=== PATIENT | male | born 1945 | race Caucasian/White ===

== ENCOUNTER 2017-01-05 15:00 | Inpatient (IN) | payer OTHER, MEDICARE ==
[~2017-01-05] VITALS: Ht 180.3 cm; Wt 106.3 kg
--- NOTE | ~2017-01-05 | DS ---
PATIENT'S NAME: VIJAY CHATTERJEE [facility] AGE: 72 Y [address] 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 SECONDARY DIAGNOSIS: 1. Hypertension. 2. Dyslipidemia. 3. History of left hip intertrochanteric fracture. 4. History of inferior myocardial infarction. 5. History of left side ischemic stroke. 6. History of left carotid artery stenosis. PROCEDURE PERFORMED: Left total hip arthroplasty with removal of the hardware of left femur. HISTORY: The patient is a 72-year-old, who presents with advanced left hip degenerative joint disease and associated severely compromised activities of daily living. The patient has decided to proceed with total left hip arthroplasty after having been thoroughly counseled regarding the risks, benefits, limitations and alternatives. Please refer to the outpatient clinic notes and admission history and physical for this patient. HOSPITAL COURSE: The patient underwent a total left hip arthroplasty on 02/01/2017 without complications. General endotracheal anesthesia plus subcutaneous and periarticular local anesthesia. was utilized. The patient received 24 hours of perioperative prophylactic antibiotics and remained hemodynamically stable, neurovascularly intact throughout the entire hospital course. The postoperative prophylactic deep venous thrombosis prophylaxis consisted of Xarelto, early mobilization and pneumatic compression devices. Daily physical therapy for gait training, transfer training, and reinforcement of hip dislocation precautions were received. The patient progressed well in physical therapy. On the date of discharge, 02/03/2017, the incision at the hip was healing well and showed no signs of infection. DISPOSITION: Home. DISCHARGE ACTIVITY: The patient is to bear weight as tolerated with strict hip dislocation precautions as instructed. There are to be no dressing changes. Dr. Becker is to be notified immediately if there is any increased PATIENT'S NAME: VIJAY CHATTERJEE [facility] AGE: 72 Y [address] ROOM: [place] [address] LOCATION: [facility] ADMIT DATE: 02/01/2017 Discharge Summary DISCHARGE DATE: 02/03/2017 FAMILY PHYSICIAN: River Damon MD ATTENDING PHYSICIAN: Paul Becker pain, fevers, chills, erythema or drainage. DISCHARGE MEDICATIONS: 1. Xarelto 10 mg 1 tablet p.o. daily for 12 days for postoperative DVT prophylaxis. 2. Gabapentin 300 mg 1 tablet p.o. every night for pain for 7 days. 3. Hydromorphone 2 mg 1 to 2 tablets p.o. every 4 hours p.r.n. for pain. 4. Diazepam 5 mg 1/2 to 1 tablet p.o. every 6 hours p.r.n. for muscle spasms. The patient is to either use the hydromorphone or his home [place] for pain, but not both at the same time. He is then instructed to continue all his other preadmission medications as instructed by his internal medicine doctor. FOLLOWUP: Followup appointment is to be with Dr. Becker's office on 02/08/2017 for his initial postoperative evaluation. PASCUAL SANDERS PA-C FOR MD KHANG ROGEL/jaun /[id number] d: 02/08/17 1211 t: 02/10/17 0810, DISCHARGE SUMMARY
--- NOTE | ~2017-01-05 | OR ---
PATIENT'S NAME: VIJAY CHATTERJEE [facility] AGE: 72 Y [address] ROOM: [place] [address] LOCATION: [facility] ADMIT DATE: 02/01/2017 OR/Procedure Report DISCHARGE DATE: FAMILY PHYSICIAN: JOSIAH CHASE MD ATTENDING PHYSICIAN: MANDO BRUSH SURGEON: Mando Brush MD CALENDER OPERATOR: Abdon Biswas PA-C and Nicolas Gupta CST/SUPER[employer]OR [employer]. DATE OF PROCEDURE: 02/01/2017 PRE-OP DIAGNOSES: Malunion left hip intertrochanteric fracture. Left hip femoral acetabular impingement syndrome. Moderate left hip degenerative joint disease. Severe preoperative leg-length discrepancy (2 cm). Retained hardware left proximal femur (trochanteric femoral nail with distal interlocking screw, proximal set screw, and lag screw). POST-OP DIAGNOSES: Malunion left hip intertrochanteric fracture. Left hip femoral acetabular impingement syndrome. Moderate left hip degenerative joint disease. Severe preoperative leg-length discrepancy (2 cm). Retained hardware left proximal femur (trochanteric femoral nail with distal interlocking screw, proximal set screw, and lag screw). OPERATION: Left total hip arthroplasty; removal of hardware, left proximal femur ([place] Gamma nail, distal interlocking screw, proximal anti-rotational set screw, and lag screw). ANESTHESIA: General endotracheal anesthesia plus subcutaneous and periarticular local anesthesia (ropivacaine with epinephrine and Toradol). ESTIMATED BLOOD LOSS: Approximately 300 mL. DRAIN: None. SPECIMEN: None. COMPLICATIONS: None. IMPLANTS: 1. Nikolas Trident Tritanium, size 58 mm, hemispherical, uncemented acetabular shell. 2. Nikolas X3 neutral acetabular polyethylene liner with 40 mm inner diameter. 3. [place] Alevism Modular 150 mm x 22 mm femoral stem with 25 mm proximal cone body (+0 mm). 4. Biolox femoral head (40 mm diameter with +4 mm taper adapter sleeve). PATIENT'S NAME: VIJAY CHATTERJEE [facility] AGE: 72 Y [address] ROOM: [place] [address] LOCATION: [facility] ADMIT DATE: 02/01/2017 OR/Procedure Report DISCHARGE DATE: FAMILY PHYSICIAN: JOSIAH CHASE MD ATTENDING PHYSICIAN: MANDO BRUSH INDICATION FOR SURGERY: Vijay Chatterjee is a 72-year-old male who presents with advanced left hip malunion intertrochanteric fracture, left hip femoral acetabular impingement syndrome, moderate left hip degenerative joint disease, severe preoperative leg-length discrepancy (2 cm), retained hardware left proximal femur (trochanteric femoral nail with distal interlocking screw, proximal set screw, and lag screw) and associated severely compromised activities of daily living. The patient has decided to proceed with hip replacement after having been thoroughly counseled regarding the associated risks, benefits, and limitations. We have specifically reviewed the risks and implications of infection, deep venous thrombosis, pulmonary embolism, mortality, neurovascular complications, blood transfusion (and associated potential for disease transmission or transfusion reaction), stiffness, instability, leg length discrepancy, mechanical deterioration of the components (due to wear and to loosening), and the potential need for revision. The patient's past orthopedic history is significant for having undergone open reduction and internal fixation of a left hip intertrochanteric fracture with Dr. Mari in [place] in September of 2015. He has experienced persistent and progressive left hip discomfort ever since then. He states his left leg has been significantly shorter than his right ever since then. He notes a markedly externally rotated foot progression angle (consistent with relative retroversion as a result of an externally rotated malunion of the intertrochanteric fracture). He received a very positive diagnostic response to an intra-articular left hip injection (but no associated durable therapeutic response). He emphasizes again (in the preoperative holding area) that he has been experiencing severe paroxysmal left anterolateral groin pain. These severe "jolts" of pain have been occurring approximately 8 times a day. These events seem to be provoked by activities that involve rotation of the hip. He understands that removal of hardware is indicated due to the fact that the presence of a hardware precludes placement of a hip replacement. He also understands that the cortical defects place him at increased risk for a postoperative periprosthetic fracture. The indication for a modular femoral component is that it will allow us to correct the relative retroversion of the proximal femur. DESCRIPTION OF PROCEDURE: The patient was positioned in a lateral decubitus position with the left side up after administration of anesthesia and prophylactic antibiotics. An axillary roll was placed and the non-operative leg was well padded. The pelvis was locked perpendicularly to the floor on a pegboard. The left hip and entire operative extremity were prepped and draped with vigilant sterile technique. PATIENT'S NAME: VIJAY CHATTERJEE [facility] AGE: 72 Y [address] ROOM: [id number] [place], [place] [address] LOCATION: [facility] ADMIT DATE: 02/01/2017 OR/Procedure Report DISCHARGE DATE: FAMILY PHYSICIAN: JOSIAH CHASE MD ATTENDING PHYSICIAN: MANDO BRUSH The patient's name as well as the intended operative side and procedure were confirmed with a verbal time-out involving myself, the circulating nurse, the scrub nurse, and the anesthesiologist. The left hip was approached through a standard posterolateral incision. The fascia jaylene and the gluteus macy fascia were sharply divided in line with the overlying skin incision. The sciatic nerve was identified and was vigilantly protected throughout the entire case. The short external rotators and posterior capsule were divided from their respective femoral insertions and tagged with four #1 Ethibond sutures for later repair. The hip was posteriorly dislocated with combined flexion, adduction, and internal rotation. The femoral neck osteotomy was performed with an oscillating saw. Inspection of the femoral head demonstrated 10 degrees of retroversion of the femoral neck relative to neutral version. This was undoubtedly a source of the patient's externally rotated foot progression angle and a contributing factor to femoral acetabular impingement. There was decreased femoral head-neck offset. There was a high-grade partial-thickness articular cartilage loss at the anterior aspect of the femoral head. The previous intertrochanteric fracture had healed. There was a vertical defect at the mid portion of the greater trochanter. There was moderate medialization of the greater trochanteric fragment with resultant moderate trochanteric conflict with the femoral canal. The head of the distal interlocking screw was approached through a 5 mm stab incision within the preexisting distal scar. This screw was removed intact. Fluoroscopy was necessary in order to localize the head of the countersunk gamma nail. The anti-rotational set screw was removed prior to removal of the lag screw. The nail was removed intact. Circumferential acetabular exposure was obtained. Inspection of the acetabulum demonstrated a moderate effusion. There were moderate grade 3 degenerative changes. There was inner perimeter degenerative tearing of the anterior superior glenoid labrum. There were no loose bodies. There was no dysplasia. Remnants of the acetabular labrum were sharply thoroughly excised. The acetabulum was sequentially progressively reamed up to 57 mm with hemispherical power reamers. The final acetabular shell was impacted into position in 20 degrees of anteversion and 45 degrees of inclination. An excellent press-fit was obtained. No supplemental dome screw fixation was necessary. A neutral trial liner was inserted. Attention was next focused upon femoral preparation. The femoral canal initiator was utilized. The femoral canal was reamed sequentially with tapered conical reamers. The size 22 mm reamer tightly engaged the proximal femoral diaphysis. The 155 mm distal stem bypassed the distal interlocking screw hole by more than 2 endosteal cortical diameters. This was confirmed PATIENT'S NAME: VIJAY CHATTERJEE [facility] AGE: 72 Y [address] ROOM: [address] [address] LOCATION: [facility] ADMIT DATE: 02/01/2017 OR/Procedure Report DISCHARGE DATE: FAMILY PHYSICIAN: JOSIAH CHASE MD ATTENDING PHYSICIAN: MANDO BRUSH fluoroscopically. Reaming for the proximal body was conducted sequentially up to a size 25. The increased offset between the 23 mm proximal body and 25 mm proximal body greatly enhanced the stability of the construct. It should be noted that the proximal body was inserted with 20 degrees of anteversion relative to neutral version. This resulted in 30 degrees greater anteversion compared to the malunited version of the femoral neck subsequent to the intertrochanteric fracture. The size 25 broach obtained excellent axial and rotational stability. Trial reductions with the above specified construct yielded acceptable stability and acceptable reproduction of leg length and offset. All trial components were removed. The final acetabular liner was inserted with excellent circumferential visualization of its locking mechanism to assure adequate deployment. The final femoral component was impacted into position. The femoral component achieved excellent axial and rotational stability. The trunnion of the femoral component was vigilantly protected prior to placement of the femoral head. The trunnion of the femoral component was thoroughly cleaned and dried prior to placement of the femoral head. The incision was thoroughly irrigated with bacteriostatic pulsatile saline lavage multiple times throughout the case. The entire joint space was thoroughly inspected and thoroughly irrigated to assure that there was no residual debris of any sort. A final reduction was then performed. After final reduction, the hip could be firmly externally rotated in full extension and zero degrees of abduction without anterior subluxation. In neutral rotation and zero degrees of abduction, the hip could be firmly flexed to 120 degrees without instability. At 90 degrees of flexion and zero degrees abduction, the hip could be internally rotated to 55 degrees before there was any hint of posterior subluxation. The posterior capsule and short external rotators were repaired through two drill holes in the posterior aspect of the greater trochanter. The fascia jaylene and gluteus macy fascia were closed with multiple simple and [id number] interrupted # 1 Ethibond and #1 Vicryl sutures. Subcutaneous tissues were thoroughly re-irrigated with bacteriostatic pulsatile saline lavage. Subcutaneous tissues were re-approximated with simple buried interrupted #0 Vicryl sutures. The skin was closed with superficial buried interrupted 2-0 Vicryl sutures followed by a running subcuticular 3-0 Monocryl suture, followed by Octylseal, followed by Steri- Strips with benzoin, followed by an occlusive Mepilex dressing. There were no intra-operative complications. PATIENT'S NAME: VIJAY CHATTERJEE [facility] AGE: 72 Y [address] ROOM: [place] [address] LOCATION: [facility] ADMIT DATE: 02/01/2017 OR/Procedure Report DISCHARGE DATE: FAMILY PHYSICIAN: JOSIAH CHASE MD ATTENDING PHYSICIAN: MANDO BRUSH It should be noted that the physician's power plant assistant played an active, integral role throughout this entire operation. By providing expert retraction, they greatly facilitated and expedited safe and effective exposure of the proximal femur and acetabulum for preparation and implantation of the components. They were also actively involved in the patient's positioning, prepping and draping, as well as wound closure. MD PAUL ROGEL/juan /[id number] d: 02/02/17 0238 t: 02/12/17 1202, OPERATIVE SUMMARY
[2017-01-05] MEDS ORDERED: ASPIRIN LO-DOSE81 MG PO (16:13)
[2017-01-05] MEDS ORDERED: PLAVIX75 MG PO (16:13)
[2017-01-05] MEDS ORDERED: LOPRESSOR25 MG PO (16:14)
[2017-01-05] MEDS ORDERED: ZANTAC (NON-FO150 MG PO (16:14)
[2017-01-05] MEDS ORDERED: LIORESAL10 MG PO (16:15)
[2017-01-05] MEDS ORDERED: LIPITOR80 MG PO (16:15)
[2017-01-05] MEDS ORDERED: COZAAR25 MG PO (16:15)
[2017-01-05] MEDS ORDERED: FLOMAX0.4 MG PO (16:16)
[2017-01-05] MEDS ORDERED: HYDROCODON-ACE1 EAC4 PO (16:16)
[2017-01-05] MEDS ORDERED: MOBIC15 MG PO (16:16)
[2017-01-05] MEDS ORDERED: NITROSTAT0.4 MG SL (16:16)
[2017-02-02 05:31] LABS: HEMATOCRIT 30.9 % (37.0-53.0); HEMOGLOBIN 10.1 g/dL (11.0-16.0)
[2017-02-03] MEDS ORDERED: TYLENOL EXTRA500 MG PO (12:02)
[2017-02-03] MEDS ORDERED: COLACE100 MG PO (12:07)
[2017-02-03] MEDS ORDERED: NEURONTIN300 MG PO (12:08)
[2017-02-03] MEDS ORDERED: MIRALAX17 GM PO (12:14)
[2017-02-03] MEDS ORDERED: XARELTO10 MG PO (13:00)
[2017-02-03] MEDS ORDERED: VALIUM5 MG PO (13:02)
[2017-02-03] MEDS ORDERED: DILAUDID 4MG4 MG PO (13:05)
== END 2017-02-03 17:12 | disposition disaster alternative care site (69) | DRG 470 ==
LOC: G3N 02-01 08:44
PROVIDERS: ADMIT Orthopaedic Surgery
PROC: 0SPB04Z Removal of Internal Fixation Device from Left Hip Joint, Open Approach (ICD-10-PCS; principal; 2017-02-01)
PROC: 0SRB02A Replacement of Left Hip Joint with Metal on Polyethylene Synthetic Substitute, Uncemented, Open Approach (ICD-10-PCS; principal; 2017-02-01)
DX: S72.142P Displaced intertrochanteric fracture of left femur, subsequent encounter for closed fracture with malunion (principal); J44.9 Chronic obstructive pulmonary disease, unspecified; M21.70 Unequal limb length (acquired), unspecified site; M16.7 Other unilateral secondary osteoarthritis of hip; R26.2 Difficulty in walking, not elsewhere classified; M25.852 Other specified joint disorders, left hip; I10 Essential (primary) hypertension; N40.0 Benign prostatic hyperplasia without lower urinary tract symptoms; K21.9 Gastro-esophageal reflux disease without esophagitis; W19.XXXD Unspecified fall, subsequent encounter; Z79.02 Long term (current) use of antithrombotics/antiplatelets; Z79.82 Long term (current) use of aspirin
CPT/HCPCS: C1776; J1170; J1885; J2795; J3010; J7030; J7120

== ENCOUNTER → 2017-01-06 | Outpatient (CLI) | payer OTHER, MEDICARE ==
[~2017-01-06] MED LIST: ASPIRIN LO-DOSE81 MG PO; COLACE100 MG PO; COZAAR25 MG PO; DILAUDID 4MG4 MG PO; FLOMAX0.4 MG PO; HYDROCODON-ACE1 EAC4 PO; LIORESAL10 MG PO; LIPITOR80 MG PO; LOPRESSOR25 MG PO; MIRALAX17 GM PO; MOBIC15 MG PO; NEURONTIN300 MG PO; NITROSTAT0.4 MG SL; PLAVIX75 MG PO; TYLENOL EXTRA500 MG PO; VALIUM5 MG PO; XARELTO10 MG PO; ZANTAC (NON-FO150 MG PO
== END | disposition disaster alternative care site (69) ==
LOC: GNJRC 10:15
DX: Z01.812 Encounter for preprocedural laboratory examination (principal); M16.12 Unilateral primary osteoarthritis, left hip